=== PATIENT | male | born 1960 | race Caucasian/White ===

== ENCOUNTER 2016-12-13 14:42 | Inpatient (IN) | payer BC ==
[2016-12-13 14:42] LABS: BASOPHIL% 0.3 % (0-2.5); EOSINOPHIL% 0.2 % (0.0-7.0); HEMATOCRIT 30.7 % (38.0-50.0); HEMOGLOBIN 9.7 gm/dL (13.0-16.0); LYMPHOCYTE# 1.4 X10e3 (1.0-3.5); LYMPHOCYTE% 12.5 % (17.0-45.0); MEAN CELL VOLUME 81.2 FL (83-96); MEAN CORPUSCULAR HEMOGLOBIN 25.6 PG (28-34); MEAN CORPUSCULAR HGB CONC 31.5 g/dL (30-36); MONOCYTE# 0.6 X10e3 (0-1.0); MONOCYTE% 5.3 % (3.0-12.0); NEUTROPHIL% 81.7 % (40-75); PLATELET COUNT 260 X10e3 (140-420); RED BLOOD COUNT 3.78 X10e (3.90-5.60); RED CELL DISTRIBUTION WIDTH 19.1 % (11.0-15.5)
[~2016-12-13 14:42] MED LIST: ALBUTEROL17 GM INH; IBUPROFEN800 MG PO; OMEPRAZOLE40 M1 PO; TRAMADOL HCL50 M1 PO; VIBRAMYCIN100 M1 PO
[2016-12-13 14:44] LABS: DIFF IND NO
[2016-12-13 14:58] LABS: PARTIAL THROMBOPLASTIN TIME 22.3 SECONDS (23.5-31.3); PROTHROMBIN TIME (PATIENT) 10.7 SECONDS (9.6-11.5)
[2016-12-13 15:04] LABS: ALBUMIN SERUM 3.7 g/dL (3.5-5.0); ALKALINE PHOSPHATASE 51 U/L (32-92); ALT (SGPT) 15 U/L (10-40); AST (SGOT) 15 U/L (10-42); BILIRUBIN,TOTAL 0.4 mg/dL (0.2-2.0); BLOOD UREA NITROGEN 38 mg/dL (9-23); CARBON DIOXIDE 21 mmol/L (22-31); CHLORIDE 110 mmol/L (100-111); GLOM FILT RATE Estimated 83.2 mL/min (>60); GLUCOSE FASTING 117 mg/dL (70-110); POTASSIUM 4.8 mmol/L (3.5-5.1); PROTEIN TOTAL SERUM 7.1 g/dL (6.0-8.3); SODIUM 138 mmol/L (135-145)
[2016-12-13 15:06] LABS: BILIRUBIN, DIRECT <0.1 mg/dL (0.0-0.2); BILIRUBIN,INDIRECT 0.3 mg/dL (0.0-0.9)
[2017-03-26] MEDS ORDERED: OMEPRAZOLE20 M1 PO (12:28)
== END 2016-12-13 17:01 | disposition left against medical advice (07) | DRG 379 ==
LOC: CED 14:42 → CEDOF 16:36
PROVIDERS: Emergency Medicine
DX: K92.2 Gastrointestinal hemorrhage, unspecified (principal); K21.9 Gastro-esophageal reflux disease without esophagitis
CPT/HCPCS: 36415; 80048; 80076; 85025; 85610; 85730; 86850; 86900; 86901; 99285; C9113

== ENCOUNTER → 2017-03-17 | Outpatient (CLI) | payer BC ==
[~2017-03-17] MED LIST changes: +OMEPRAZOLE20 M1 PO
[2017-03-17 17:48] LABS: HEMATOCRIT 29.1 % (38.0-50.0); HEMOGLOBIN 8.6 gm/dL (13.0-16.0); MEAN CELL VOLUME 68.9 FL (83-96); MEAN CORPUSCULAR HEMOGLOBIN 20.4 PG (28-34); MEAN CORPUSCULAR HGB CONC 29.7 g/dL (30-36); MEAN PLATELET VOLUME 7.9 FL (6.5-11.5); RED BLOOD COUNT 4.23 X10e (3.90-5.60); RED CELL DISTRIBUTION WIDTH 20.8 % (11.0-15.5); WHITE BLOOD COUNT 9.7 X10e3 (4.0-10.5)
[2017-03-17 18:10] LABS: ALBUMIN SERUM 4.3 g/dL (3.5-5.0); BILIRUBIN,TOTAL 0.5 mg/dL (0.2-2.0); BUN/CREATININE RATIO 16.36; CALCIUM SERUM 9.1 mg/dL (8.4-10.2); CREATININE SERUM 1.1 mg/dL (0.6-1.4); GLOM FILT RATE Estimated 74.1 mL/min (>60); POTASSIUM 4.9 mmol/L (3.5-5.1); PROTEIN TOTAL SERUM 8.3 g/dL (6.0-8.3)
== END | disposition home or self-care (01) ==
LOC: EDBD 17:29 → CLAB 17:29
PROVIDERS: Internal Medicine
DX: K92.2 Gastrointestinal hemorrhage, unspecified (principal)
CPT/HCPCS: 36415; 80053; 85027

== ENCOUNTER → 2017-03-26 | Outpatient (CLI) | payer BC ==
[2017-03-26 13:30] LABS: HEMATOCRIT 30.1 % (38.0-50.0); HEMOGLOBIN 9.1 gm/dL (13.0-16.0); MEAN CELL VOLUME 69.3 FL (83-96); MEAN CORPUSCULAR HGB CONC 30.3 g/dL (30-36); MEAN PLATELET VOLUME 8.3 FL (6.5-11.5); RED BLOOD COUNT 4.35 X10e (3.90-5.60); RED CELL DISTRIBUTION WIDTH 21.4 % (11.0-15.5); WHITE BLOOD COUNT 6.6 X10e3 (4.0-10.5)
== END | disposition home or self-care (01) ==
LOC: CAMB 12:00 → EDBD 12:04
PROVIDERS: Surgery
DX: Z01.812 Encounter for preprocedural laboratory examination (principal); K43.9 Ventral hernia without obstruction or gangrene
CPT/HCPCS: 36415; 85027

== ENCOUNTER → 2017-04-02 | Day surgery (SDC) | payer BC ==
--- NOTE | ~2017-04-02 | OR ---
Unit #: [id number] #: [id number] Patient: ROSALBA OSMAN [id number] [address] [place], [place] [address] [id number] O MR#: [id number] NAME: ROSALBA OSMAN ROOM: Date of Procedure: 04/02/2017 Admission Date: 04/02/2017 Surgeon: Dariusz Barrios M.D. : 1960 Attending Physician: Dariusz Barrios M.D. Primary Care Physician: Primary Care Physician No OPERATIVE REPORT PREOPERATIVE DIAGNOSIS Severe anemia. POSTOPERATIVE DIAGNOSIS Normal colonoscopy. PROCEDURE PERFORMED Colonoscopy to cecum. ANESTHESIA IV sedation. COMPLICATIONS None. INDICATIONS FOR PROCEDURE The patient is a 56-year-old gentleman, who is preparing for umbilical hernia repair and presents with anemia. He had a recent upper endoscopy. He now presents for colonoscopy. DESCRIPTION OF PROCEDURE The patient was taken to the operating theater and placed in the left lateral decubitus position. IV sedation was initiated. Digital rectal exam was normal. Colonoscope was then passed under direct vision and navigated to the cecum. The patient had excellent prep. I saw no evidence of neoplastic lesions, diverticula, colitis, or other findings. He tolerated the procedure well and sent to the recovery room in good condition. Dictated by... Kandis Child/danyel TD: 04/02/2017 09:11 JOB #: [id number] Unit #: [id number] #: [id number] Patient: ROSALBA OSMAN OPERATIVE REPORT Page 1 of 1 X Dariusz Brarios MD X PROCEDURE OPERATIVE NOTE
== END | disposition home or self-care (01) ==
LOC: EDBD 06:15 → COPS 06:15 → EDBD 08:30 → COPS 08:30
DX: D64.9 Anemia, unspecified (principal); K21.9 Gastro-esophageal reflux disease without esophagitis; Z87.11 Personal history of peptic ulcer disease; Z88.2 Allergy status to sulfonamides; Z79.899 Other long term (current) drug therapy; Z98.890 Other specified postprocedural states
CPT/HCPCS: J2250

== ENCOUNTER → 2017-04-12 | Day surgery (SDC) | payer BC ==
--- NOTE | ~2017-04-12 | OR ---
Unit #: [id number] #: [id number] Patient: ROSALBA OSMAN [id number] [address] [address] [id number] O MR#: [id number] NAME: ROSALBA OSMAN ROOM: Date of Procedure: 04/12/2017 Admission Date: 04/12/2017 Surgeon: Dariusz Barrios M.D. : 1960 Attending Physician: Dariusz Barrios M.D. Primary Care Physician: Primary Care Physician No OPERATIVE REPORT PREOPERATIVE DIAGNOSIS Incarcerated ventral hernia. POSTOPERATIVE DIAGNOSIS 2 cm incarcerated ventral hernia. PROCEDURE PERFORMED Laparoscopic ventral hernia repair of incarcerated ventral hernia. CORROSION CONTROL FITTER None. ANESTHESIA General anesthesia. ESTIMATED BLOOD LOSS Minimal. IV FLUIDS 800 crystalloid. COMPLICATIONS None. INDICATIONS FOR PROCEDURE The patient is a 56-year-old gentleman with incarcerated ventral hernia. DESCRIPTION OF PROCEDURE The patient was taken to the operating theater and placed in supine position. General anesthesia was induced. The abdomen was prepped and draped. A 5-mm Optiview trocar was placed into the left upper quadrant without difficulty. The abdomen was insufflated to 15 mmHg with CO2. I placed left lower quadrant 10 mm. The patient was found to have an incarcerated hernia. This was reduced with combination of sharp and blunt dissection. I then placed a 6-inch Ventralight mesh into position. This was held in place with single-stranded Vicryl sutures and delivered transcutaneous. I then secured with a SorbaFix Tacker. Each tack being 1.5 cm from previous tack. I did 2 circumferential rows. This covered the defect by at least 5 cm in all circumference. Hemostasis was adequate. I removed the ports under direct vision with no evidence of abdominal hemorrhage. The sutures were cut at skin level. I then closed the wounds with 4-0 Vicryl. The patient tolerated the procedure well and Unit #: [id number] #: [id number] Patient: ROSALBA OSMAN sent to recovery room in good condition. Dictated by... Kandis Child/danyel TD: 04/12/2017 16:00 JOB #: [id number] OPERATIVE REPORT Page 1 of 1 X Dariusz Barrios MD PROCEDURE OPERATIVE NOTE
[2017-04-12 08:02] LABS: HEMATOCRIT 28.2 % (38.0-50.0); HEMOGLOBIN 8.7 gm/dL (13.0-16.0); MEAN CELL VOLUME 68.2 FL (83-96); MEAN CORPUSCULAR HEMOGLOBIN 20.9 PG (28-34); MEAN CORPUSCULAR HGB CONC 30.6 g/dL (30-36); MEAN PLATELET VOLUME 7.4 FL (6.5-11.5); RED BLOOD COUNT 4.14 X10e (3.90-5.60); RED CELL DISTRIBUTION WIDTH 21.3 % (11.0-15.5); WHITE BLOOD COUNT 5.7 X10e3 (4.0-10.5)
== END | disposition home or self-care (01) ==
LOC: CSUR 07:30
PROVIDERS: Surgery
DX: K43.6 Other and unspecified ventral hernia with obstruction, without gangrene (principal); K22.70 Barrett's esophagus without dysplasia; K21.9 Gastro-esophageal reflux disease without esophagitis; Z88.2 Allergy status to sulfonamides; Z87.11 Personal history of peptic ulcer disease; Z79.899 Other long term (current) drug therapy; Z87.19 Personal history of other diseases of the digestive system
CPT/HCPCS: 85027; C1781; J0330; J0690; J1100; J1644; J2250; J2405; J2710; J3010